=== PATIENT | male | born 1965 | race Caucasian/White ===

== ENCOUNTER 2019-10-11 12:45 | Emergency (ER) | payer OTHER ==
--- NOTE | 2019-10-11 13:28 | NUR ---
Pt called for triage, NIL. Patient stated he was going to wait outside however, he is not outside.
== END 2019-10-11 14:00 | disposition left against medical advice (07) ==
LOC: ER 12:46
DX: L02.91 Cutaneous abscess, unspecified (principal); Z53.21 Procedure and treatment not carried out due to patient leaving prior to being seen by health care provider

== ENCOUNTER 2024-02-06 13:48 | Emergency (ER) | payer OTHER ==
[~2024-02-06] VITALS: Ht 182.9 cm; Wt 95.5 kg
[2024-02-06] MEDS: HYDROcodone/acetaminophen 10/325mg tab PO ONE (15:39)
[2024-02-06] MEDS: LORazepam 1 MG tablet PO ONE (15:39)
[2024-02-06] MEDS: TETanus/Pertussis (Acell)/Diphther VAC/PF (Tdap-Adult) 0.5ml syringe IMVAC ONE (15:41)
[2024-02-06] MEDS: LIDOcaine 1% 30ml preserv. free vial IJ ONE (15:43)
[2024-02-06] MEDS ORDERED: HYDR-3973 PO (16:15)
[2024-02-06] MEDS ORDERED: CEPH-585 PO (16:15)
[2024-02-06] MEDS: cephalexin 250mg capsule PO ONE (17:09)
[2024-02-06] MEDS ORDERED: MUPI22OI30 TOP (17:11)
[2024-02-06 17:20] VITALS: BP 175/87; PULSE 69; RESP 15; TEMP 98.1; O2SAT 99
== END 2024-02-06 17:11 | disposition home or self-care (01) ==
LOC: ER 13:48
DX: S62.631B Displaced fracture of distal phalanx of left index finger, initial encounter for open fracture (principal); Z79.2 Long term (current) use of antibiotics; W31.2XXA Contact with powered woodworking and forming machines, initial encounter; Y93.89 Activity, other specified; Y92.89 Other specified places as the place of occurrence of the external cause; Y99.8 Other external cause status
CPT/HCPCS: 12001; 73140; 90471; 90715; 99284